=== PATIENT | male | born 1950 | race Caucasian/White ===

== ENCOUNTER 2020-10-22 05:29 | Inpatient (IN) | payer MEDICARE ==
[2020-10-14 12:23] LABS: BASOPHILS % (AUTO) 0.3 % (0-1); EOSINOPHILS # (AUTO) 0.1 X10'3 (0-0.9); EOSINOPHILS % (AUTO) 1.9 % (0-6); LYMPHOCYTES # (AUTO) 1.3 X10'3 (1.1-4.8); LYMPHOCYTES % (AUTO) 19.9 % (21-51); MEAN CORPUSCULAR HEMOGLOBIN 29.6 PG (27.0-31.0); MEAN CORPUSCULAR HGB CONC 33.8 g/dL (33.0-36.5); MEAN CORPUSCULAR VOLUME 87.4 FL (78-98); MEAN PLATELET VOLUME 8.9 FL (7.4-10.4); MONOCYTES # (AUTO) 0.4 X10'3 (0-0.9); MONOCYTES % (AUTO) 6.6 % (2-12); NEUTROPHILS # (AUTO) 4.5 X10'3 (1.8-7.7); NEUTROPHILS % (AUTO) 71.3 % (42-75); PRE OP HEMATOCRIT 43.5 % (42.0-52.0); PRE OP HEMOGLOBIN 14.7 g/dL (14.0-17.9); PRE OP PLATELET COUNT 186 X10'3 (140-440); RED BLOOD COUNT 4.98 X10'6 (4.70-6.10); RED CELL DISTRIBUTION WIDTH 14.9 % (11.5-14.5)
[2020-10-14 12:39] LABS: PRE OP INR 1.1 INR; PRE OP PROTIME 11.2 SECONDS (9.0-12.0)
[2020-10-14 12:45] LABS: ALBUMIN 4.1 G/DL (3.4-5.0); ALBUMIN/GLOBULIN RATIO 1.3 (1.1-1.5); ALKALINE PHOSPHATASE 91 IU/L (46-116); BLOOD UREA NITROGEN 15 MG/DL (7-18); BUN/CREATININE RATIO 18.5 (5.4-32.0); CALCIUM 9.3 MG/DL (8.5-10.1); CHLORIDE 105 MMOL/L (99-107); CREATININE 0.81 MG/DL (0.60-1.10); PRE OP ALT 32 U/L (30-65); PRE OP ANION GAP 12 (8-16); PRE OP AST 19 U/L (10-37); PRE OP BILIRUB, TOTAL 0.8 MG/DL (0.0-1.0); PRE OP GLUCOSE 100 MG/DL (70-104); PRE OP POTASSIUM 3.5 MMOL/L (3.4-5.1); PRE OP SODIUM 142 MMOL/L (135-145); TOTAL CARBON DIOXIDE 24.7 MMOL/L (24-32); TOTAL PROTEIN 7.2 G/DL (6.4-8.2); eGFR > 90 ML/MIN
[2020-10-22] VITALS (19 sets, daily range): BP systolic 92–144; BP diastolic 64–90
[~2020-10-22] VITALS: Ht 177.8 cm; Wt 122.5 kg
[~2020-10-22 05:29] MED LIST: AMLO2.5T2 PO; FLUO20CA39 PO; HYDR25TA4 PO; QUIN40TA PO; ROSU20TA2 PO
[2020-10-22] MEDS ORDERED: famotidine 20mg tablet PO ONE (05:30)
[2020-10-22] MEDS ORDERED: vancomycin 1,500 MG in NS 300ml IV soln IV ONE (05:30)
[2020-10-22] MEDS ORDERED: tranexamic acid 1gm/0.7% sal. 100 ML IV ONE (05:30)
[2020-10-22] MEDS ORDERED: ceFAZolin 2gm in dextrose, iso 50 ML IV ONE (05:30)
[2020-10-22] MEDS ORDERED: ceFAZolin/D5W- 1GM premix 50 ML IV ONE (05:30)
[2020-10-22] MEDS ORDERED: ROPIVAcaine 0.5% (5mg/ml) 30ml vial ONE (06:50)
[2020-10-22] MEDS ORDERED: cloNIDine hcl/PF 100mcg/ml inj ONE (06:50)
[2020-10-22] MEDS ORDERED: ketorolac trometh. 30mg/ml inj. ONE (06:50)
[2020-10-22] MEDS ORDERED: tetracaine 1% (10mg/ml) pres. free inj. ONE (07:06)
[2020-10-22] MEDS ORDERED: fentaNYL/PF 50MCG/1 ML 2ML syringe ONE (07:08)
[2020-10-22] MEDS ORDERED: MIDAZolam 1mg/ml 10ml vial ONE (07:09)
[2020-10-22] MEDS ORDERED: morphine /PF 1mg/ml 10ml inj. ONE (07:09)
[2020-10-22] MEDS: ringers solution, lacted 1,000 ML IV SCH ×2 (07:19→11:26)
[2020-10-22] MEDS ORDERED: ondansetron/PF 4mg/2ml inj IV PRN ×3 (07:20→10:55)
[2020-10-22] MEDS ORDERED: ringers solution, lacted 1,000 ML IV SCH (07:20)
[2020-10-22] MEDS ORDERED: morphine 2 MG/ML inj. syringe IV PRN (07:20)
[2020-10-22] MEDS ORDERED: hydrALAZINE 20mg/ml inj. IV PRN (07:20)
[2020-10-22] MEDS ORDERED: morphine 4 MG/ML inj SYRINge IV PRN (07:20)
[2020-10-22] MEDS ORDERED: diphenhydrAMINE 50 mg/ml inj IV PRN (07:20)
[2020-10-22] MEDS ORDERED: fentaNYL/PF 50MCG/1 ML 2ML syringe IV PRN ×2 (07:20)
[2020-10-22] MEDS ORDERED: labetalol 20mg/4ml (5mg/ml) syringe IV PRN (07:20)
[2020-10-22] MEDS ORDERED: diphenhydrAMINE 50 mg/ml inj ONE (09:44)
[2020-10-22] MEDS ORDERED: TRANEXAMIC ACID 1 GM IN NACL,ISO-OS 100 ML IV ONE (10:10)
[2020-10-22] MEDS ORDERED: HYDROcodone/acetaminophen 10/325mg tab PO PRN (10:55)
[2020-10-22] MEDS ORDERED: diphenhydrAMINE 25mg capsule PO PRN ×2 (10:55)
[2020-10-22] MEDS ORDERED: HYDROmorphone 1 mg/ml syringe IV PRN (10:55)
[2020-10-22] MEDS ORDERED: bisacodyl 10mg suppository rectal RC PRN (10:55)
[2020-10-22] MEDS ORDERED: magnesium hydroxide 30ml (MOM) UD suspension PO PRN (10:55)
[2020-10-22] MEDS ORDERED: acetaminophen 325mg tablet PO PRN (10:55)
--- NOTE | 2020-10-22 11:00 | NUR ---
Received from OR via ORTHO BED , accompanied by Anesthesiologist DR MILLAN and report given by Anesthesiolgist. KNEE WRAP TO RIGHT KNEE CDI. COLD POWDER PACK IN PLACE. STRONG PALPABLE PEDAL PULSE TO RIGHT FOOT. PT AROUSABLE, DENIES PAIN AND NAUSEA. SENSATION AT WAIST LEVEL. SCDS ON. IV PATENT. F/C TO GRAVITY.
--- NOTE | 2020-10-22 11:26 | NUR ---
Patient in room . I have received report from Mary LOVE and had the opportunity to ask questions and assume patient care.
--- NOTE | 2020-10-22 11:50 | NUR ---
PT TO 4024 B VIA ORTHO BED. DENIES PAIN AND NAUSEA, SENSATION NOW AT HIP LEVEL. NOT YET ABLE TO WIGGLE TOES OR MOVE LEGS. PILLOW AT HEEL PER MD ORDERS. PT STATES READINESS FOR TRANSFER TO ROOM. PT TOLERATED CRANBERRY JUICE, DENIES NAUSEA. ALL BELONGINGS W/ PT UPON TRANSFER TO ROOM, 1 BAG AND WEDDING BAND ON RING FINGER. REPORT GIVEN TO KITTY LOVE AND HER ORIENTEE.
--- NOTE | 2020-10-22 12:05 | NUR ---
Heels elevated on pillow
[2020-10-22] MEDS: ceFAZolin/D5W- 1GM premix 50 ML IV SCH (16:51)
[2020-10-22] MEDS: potassium Cl 20mEq in NS 1,000 ML IV SCH (16:53)
--- NOTE | 2020-10-22 16:53 | NUR ---
Placed page to Dr. Ureña regarding low urine output.
[2020-10-22] MEDS: aspirin 81mg tablet.DR PO SCH (16:59)
[2020-10-22] MEDS ORDERED: aspirin 325mg tablet PO SCH (17:30)
[2020-10-22] MEDS ORDERED: normal saline 1000ML IV soln IVB ONE (18:20)
--- NOTE | 2020-10-22 18:23 | NUR ---
Problems reprioritized. Patient report given, questions answered & plan of care reviewed with Brittany LOVE.
--- NOTE | 2020-10-22 18:26 | NUR ---
Precepting KATE Taylor, agree with assessments.
[2020-10-22] MEDS ORDERED: vancomycin/NS 1 GM ADD-VANTAGE 250 ML IV SCH (20:00)
[2020-10-22] MEDS ORDERED: sennosides 8.6mg tablet PO SCH (21:00)
[2020-10-23] MEDS: potassium Cl 20mEq in NS 1,000 ML IV SCH ×2 (00:15→10:33)
[2020-10-23] MEDS: ceFAZolin/D5W- 1GM premix 50 ML IV SCH (00:26)
[2020-10-23 02:00] VITALS: BP 159/65
[2020-10-23] MEDS: HYDROcodone/acetaminophen 10/325mg tab PO PRN ×2 (05:15→11:06)
[2020-10-23 06:00] VITALS: BP 154/66
[2020-10-23 06:08] LABS: BASOPHILS % (AUTO) 0.3 % (0-1); EOSINOPHILS % (AUTO) 0.2 % (0-6); HEMATOCRIT 32.8 % (42.0-52.0); HEMOGLOBIN 11.1 g/dl (14.0-17.9); LYMPHOCYTES # (AUTO) 1.1 X10'3 (1.1-4.8); LYMPHOCYTES % (AUTO) 13.7 % (21-51); MEAN CORPUSCULAR HEMOGLOBIN 29.9 PG (27.0-31.0); MEAN CORPUSCULAR HGB CONC 33.9 g/dL (33.0-36.5); MEAN CORPUSCULAR VOLUME 88.2 FL (78-98); MONOCYTES # (AUTO) 0.9 X10'3 (0-0.9); MONOCYTES % (AUTO) 10.3 % (2-12); NEUTROPHILS # (AUTO) 6.2 X10'3 (1.8-7.7); NEUTROPHILS % (AUTO) 75.5 % (42-75); PLATELET COUNT 162 X10'3 (140-440); RED BLOOD COUNT 3.72 X10'6 (4.70-6.10); RED CELL DISTRIBUTION WIDTH 14.6 % (11.5-14.5); WHITE BLOOD COUNT 8.3 X10'3 (4.5-11.0)
--- NOTE | 2020-10-23 06:14 | NUR ---
Problems reprioritized. Patient report given, questions answered & plan of care reviewed with KATE Suarez.
[2020-10-23 06:34] LABS: ALANINE AMINOTRANSFERASE 32 U/L (12-78); ALBUMIN 3.3 G/DL (3.4-5.0); ALBUMIN/GLOBULIN RATIO 1.2 (1.1-1.5); ALKALINE PHOSPHATASE 67 IU/L (46-116); ANION GAP 12 (8-16); ASPARTATE AMINO TRANSFERASE 16 U/L (10-37); BILIRUBIN,TOTAL 0.9 MG/DL (0.1-1.0); BLOOD UREA NITROGEN 18 MG/DL (7-18); BUN/CREATININE RATIO 15.5 (5.4-32.0); CALCIUM 8.2 MG/DL (8.5-10.1); CHLORIDE 106 MMOL/L (99-107); CREATININE 1.16 MG/DL (0.60-1.10); GLUCOSE 146 MG/DL (70-104); POTASSIUM 3.9 MMOL/L (3.5-5.1); SODIUM 139 MMOL/L (135-145); TOTAL CARBON DIOXIDE 20.6 MMOL/L (24-32); TOTAL PROTEIN 6.1 G/DL (6.4-8.2); eGFR 62 ML/MIN
--- NOTE | 2020-10-23 06:54 | NUR ---
Patient in room ORTHO 4024. I have received report from cassia ma and had the opportunity to ask questions and assume patient care.
[2020-10-23] MEDS: aspirin 81mg tablet.DR PO SCH (07:28)
[2020-10-23] MEDS ORDERED: FLUoxetine 20mg capsule PO SCH (08:00)
[2020-10-23] MEDS ORDERED: lisinopril 20mg tablet PO SCH (08:00)
[2020-10-23] MEDS ORDERED: amLODIPine 5mg tablet PO SCH (08:00)
[2020-10-23] MEDS ORDERED: HYDROchlorothiazide 25mg tablet PO SCH (08:00)
[2020-10-23 10:00] VITALS: BP 154/75
[2020-10-23] MEDS ORDERED: oxyCODONE IR 5mg (immed. release) tablet PO PRN ×2 (11:55)
[2020-10-23] MEDS ORDERED: SENN-173 PO (14:02)
[2020-10-23] MEDS ORDERED: OXYC-658 PO (14:02)
[2020-10-23] MEDS ORDERED: ASPI-1071 PO (14:27)
--- NOTE | 2020-10-23 15:46 | NUR ---
Pt discharged [facility] at 1449 with friend in private vehicle. Belonging sent with pt. Iv removed, tip intact, no complications. All questions/concerns reviewed and answered. Educated pt on proper picco dressing care and TKA precuations. Pt discharged in stable condition.
--- NOTE | 2020-10-27 11:13 | NUR ---
CASE MANAGEMENT DISCHARGE FOLLOW UP: T/c to pt, no answer, left message requesting callback. Addendum: 10/27/20 at 1326 by Jaqueline Baker RN [id number] Received VM from pt's , Radah. Returned call. She reports that pt is doing good, just got back from doctor's office. She states that his pain level has been up and down, just received new Rx for pain medication. Verbalizes understanding of s/sx requiring further evaluation/emergent assistance. She states that pt does have swelling in his leg, but that it is being monitored by the doctor. Verbalizes understanding of medications. Verbalizes compliance with MD discharge instructions. States no further questions/concerns at this time.
== END 2020-10-23 14:45 | disposition home or self-care (01) | DRG 470 ==
LOC: PAS 05:29 → ORTHO 4S 12:00 → PAS 13:36 → ORTHO 4S 13:36 → PAS 10-23 14:45
PROVIDERS: ADMIT Orthopaedic Surgery; ATTEND Orthopaedic Surgery
PROC: 3E0T3BZ Introduction of Anesthetic Agent into Peripheral Nerves and Plexi, Percutaneous Approach (ICD-10-PCS; 2020-10-22)
PROC: 3E0T33Z Introduction of Anti-inflammatory into Peripheral Nerves and Plexi, Percutaneous Approach (ICD-10-PCS; 2020-10-22)
PROC: 0SRC0J9 Replacement of Right Knee Joint with Synthetic Substitute, Cemented, Open Approach (ICD-10-PCS; principal; 2020-10-22 07:20)
DX: M17.11 Unilateral primary osteoarthritis, right knee (principal); Z79.899 Other long term (current) drug therapy; D50.0 Iron deficiency anemia secondary to blood loss (chronic)
CPT/HCPCS: 36415; 80053; 82948; 85025; 85610; 85730; 86885; 86900; 86901; 86920; 87081; 97116; 97162; 97530; A6455; A7000; A9272; C1713; C1758; C1776; G0378; J0690; J0735; J1200; J1885; J2250; J2270; J2795; J3010; J3370; J3480; J7030; J7040; J7120; Q0163